=== PATIENT | male | born 1970 | race Caucasian/White ===

== ENCOUNTER 2016-08-02 10:24 | Observation (INO) | payer BC ==
[2016-08-02] MEDS ORDERED: Aspirin Low Dose CHEW TAB* 81 MG PO ONE (10:27)
[2016-08-02 12:17] LABS: Hematocrit 43 % (42-52); Hemoglobin 14.6 g/dl (14.0-18.0); Mean Corpuscular HGB Conc 34 g/dl (31-36); Mean Corpuscular Hemoglobin 30 pg (27-31); Mean Corpuscular Volume 89 fL (80-94); Mean Platelet Volume 8 um3 (7.4-10.4); Red Blood Count 4.83 10^6/ul (4.0-5.4); Red Cell Distribution Width 13 % (10.5-15); White Blood Count 9.7 10^3/ul (3.5-10.8)
[2016-08-02] MEDS ORDERED: Nitroglycerin 2% OINT* 1 GM PAK TOPICAL ONE (12:19)
[2016-08-02] MEDS ORDERED: Nitroglycerin 2% OINT* 1 GM PAK ONE (12:22)
[2016-08-02 12:34] LABS: Albumin 4.1 g/dL (3.2-5.2); BUN/Creatinine Ratio 15.9 (8-20); Calcium 9.4 mg/dL (8.6-10.3); EGFR African American 119.9 (>60); EGFR Non-African American 93.2 (>60); Globulin 2.9 g/dL (2-4); Potassium 3.8 mmol/L (3.5-5.0); Total Bilirubin 0.9 mg/dL (0.2-1.0)
[2016-08-02 12:42] LABS: Troponin I 0.04 ng/mL (<0.04)
[2016-08-02] MEDS ORDERED: Acetaminophen TAB* 325 MG PO PRN (13:30)
[2016-08-02] MEDS ORDERED: Albuterol 2.5 MG/3 ML NEB.SOL* (0.083%) INH PRN (13:30)
[2016-08-02] MEDS ORDERED: Heparin DRIP 25,000 UNITS(*) 25,000 UNITS/500 ML BAG IVPB SCH (13:30)
[2016-08-02] MEDS ORDERED: Ondansetron INJ* 2 MG/ML VIAL IV PRN (13:30)
--- NOTE | 2016-08-02 14:23 | RAD ---
INDICATION: Chest pain. COMPARISON: There are no prior studies available for comparison. TECHNIQUE: A portable view of the chest was obtained. FINDINGS: Cardiac and mediastinal contours appear to be within normal limits. The lungs are clear. No pleural effusion is seen. IMPRESSION: NO EVIDENCE FOR ACUTE DISEASE.
[2016-08-02] MEDS: Heparin VIAL(*) 5000 UNITS/ML VIAL (FIVE THOUSAND) IV SCH (15:15)
[2016-08-02] MEDS: Metoprolol Tartrate TAB* 25 MG PO SCH ×2 (15:16→21:08)
[2016-08-02] MEDS: Atorvastatin* 80 MG TAB PO SCH ×2 (15:16→15:55)
[2016-08-02] MEDS: Omeprazole CAP* 20 MG PO SCH (15:16)
[2016-08-02] MEDS: Nitroglycerin 2% OINT* 1 GM PAK TOPICAL SCH ×2 (15:17→21:15)
[2016-08-02] MEDS ORDERED: Perflutren Lipid Microsphere* 3 ML VIAL IV ONE (16:00)
--- NOTE | 2016-08-02 16:35 | ECHO ---
Patient: TARA COREAS [facility] Rec#: [id number] : 1970 Date: 08/02/2016 Age: 46y Height: 173 cm / 68.1 in Weight: 100 kg / 220.4 lbs Sex: M BSA: 2.13 Room#: 453 Admit Date#: 08/02/2016 Type: Inpatient Referring: Ankit De La Garza NP Reading: Ranjit Beckwith MD [employer] Machine Operator Helper: Jocy Kasper RDCS,RDMS CC: Bhavin Berman MD Transthoracic Echocardiogram Indication: CP BP: 126/89 Rhythm: NSR Indications Chest Pain Findings History: Angina, asthma, GERD Technical Comments: The study quality is fair. Completed at 1630 The study is technically limited due to poor apical windows. Left Ventricle: The left ventricular chamber size is normal. Mild concentric left ventricular hypertrophy is observed. Global left ventricular wall motion and contractility are within normal limits. The estimated ejection fraction is 55-60%. There is no consistent Doppler evidence of clinically significant diastolic dysfunction. Left Atrium: The left atrial chamber size is normal. Right Ventricle: The right ventricular chamber size and systolic function are within normal limits. Right Atrium: The right atrial cavity size is normal. Aortic Valve: The aortic valve is trileaflet. There is no evidence of aortic valve thickening. There is no evidence of aortic regurgitation. There is no evidence of aortic stenosis. Mitral Valve: The mitral valve leaflets appear normal. There is no evidence of mitral regurgitation. There is no evidence of mitral stenosis. Tricuspid Valve: The tricuspid valve leaflets are normal. There is a physiologic tricuspid regurgitation. Unable to estimate the right ventricular systolic pressure. Pulmonic Valve: There is no evidence of pulmonic valve thickening. There is a trace pulmonic regurgitation. Pericardium: There is no significant pericardial effusion. Aorta: The aortic root appears normal. There is no dilatation of the aortic arch. Pulmonary Artery: The main pulmonary artery appears normal. Venous: The inferior vena cava appears normal in size. There is a greater than 50% respiratory change in the inferior vena cava dimension. Contrast: Definity was used to optimize study. A total of 4 ml was used Conclusions Mild concentric left ventricular hypertrophy is observed. Global left ventricular wall motion and contractility are within normal limits. The estimated ejection fraction is 55-60%. The right ventricular chamber size and systolic function are within normal limits. There is no evidence of aortic regurgitation. There is no evidence of aortic stenosis. There is no evidence of mitral regurgitation. There is a physiologic tricuspid regurgitation. Unable to estimate the right ventricular systolic pressure. There is no significant pericardial effusion. Measurements Name Value Normal Range RVIDd (AP) 2D 3 cm (0.9 - 2.6) RVDdMajor (2D) 2.5 cm (2.2 - 4.4) RAd ISD 4CH 4.6 cm (3.4 - 4.9) RA (A4C)W 3.4 cm (2.9 - 4.6) IVSd (2D) 1.1 cm (0.6 - 1) LVPWd (2D) 1.1 cm (0.6 - 1) LVIDd (2D) 4.5 cm (3.6 - 5.4) LVIDs (2D) 3.6 cm - LV FS (2D) 20 % (25 - 45) Aortic Annulus 2.1 cm (1.4 - 2.6) Ao root diameter (2D) 2.8 cm (2.1 - 3.5) Ascending Ao 2.8 cm (2.1 - 3.4) Aortic arch 3.2 cm (1.8 - 3.4) LA dimension (AP) 2D 4 cm (2.3 - 3.8) LAd ISD 4CH 5.2 cm (2.9 - 5.3) LA ISD 4CH W 4.2 cm (2.5 - 4.5) Name Value Normal Range LA ESV SP 4CH (A/L) 60.49 ml - LA ESV SP 2CH (A/L) 77.32 ml - LA ESV BP (A/L) 68.92 ml - LA ESV BP (A/L) index 31 ml/m2 - LA ESV SP 4CH (MOD) 57.13 ml - LA ESV SP 2CH (MOD) 74.28 ml - Name Value Normal Range MV E-wave Vmax 0.7 m/sec - MV deceleration time 199 msec - MV A-wave Vmax 0.6 m/sec - MV E:A ratio 1.2 ratio - LV septal e' Vmax 0.09 m/sec - LV lateral e' Vmax 0.07 m/sec - LV E:e' septal ratio 8 ratio - LV E:e' lateral ratio 10 ratio - Name Value Normal Range AV Vmax 1.4 m/sec - AV VTI 26 cm - AV peak gradient 8 mmHg - AV mean gradient 3.7 mmHg - LVOT Vmax 1.4 m/sec - LVOT VTI 24.3 cm - LVOT peak gradient 8 mmHg - LVOT mean gradient 3.4 mmHg - MIGUEL ANGEL Vmax 1 m/sec - Name Value Normal Range RAP 8 mmHg - IVC diameter 2.1 cm - Name Value Normal Range PV Vmax 0.9 m/sec - PV peak gradient 3.2 mmHg -
[2016-08-02] MEDS: Morphine INJ* 2 MG/ML 1 ML SYRINGE IV PRN (19:53)
[2016-08-02] MEDS: Mometasone/Formoter 200/5 MDI INH SCH (20:11)
--- NOTE | 2016-08-02 20:11 | HP ---
HISTORY AND PHYSICAL: DATE OF ADMISSION: 08/02/16 PRIMARY CARE PROVIDER: Dr. Berman. ATTENDING PHYSICIAN WHILE IN THE HOSPITAL: Dr. Shirley Anderson * (report dictated by Ankit De La Garza NP) CONSULTING DIRECTOR OF MEDICAL STAFF SERVICES: Dr. Beckwith. CHIEF COMPLAINT: Chest pain. HISTORY OF PRESENT ILLNESS: Mr. Manley is a 46-year-old male patient, who carries a history of GERD and asthma. He comes in today stating that about 10 days ago, he came back from [place] on the and he noticed the night of getting back, he had an episode of chest discomfort in the center of his chest, described as pressure in the center. He went and sought care with initially Ren[facility] and then Dr. Berman. Ultimately, throughout last week, he had a CTA of the chest, which was negative and he also had ultrasound of lower extremities, which were negative. He says that though throughout the week , he has had progressive worsening chest discomfort mostly at night. He states that the pain is described as a pressure and he has noticed that initially when the pain came last week, it only lasted about 15 to 20 minutes; however, the duration, frequency, and intensity of the pain has been increasing throughout the week. He has noticed that almost on a nightly basis now he is having chest discomfort. He was set up with Dr. Berman to undergo stress testing and an echo. Unfortunately, last night, around 3 o'clock in the morning, he woke up, started having chest discomfort, he was sweaty, he felt short of breath. The symptoms were much more intense and different. The associated symptoms were now new. Interestingly, though he does state that if he changes position, the pain did go away particularly after taking his first nitro. He says that the pain lasted probably about an hour to two hours and went away by the time he went to the ER initially in [place] on this morning, he received another nitro over at the [facility] and the pain went completely away. He was evaluated there because he was having recurrence of chest pain and his story was concerning. He was sent to [facility]. Initial troponin was 0.02 and he had an EKG here, which did show right bundle branch block with no ST elevations or T-wave inversion. He says he has not been sick recently. Denies having any leg swelling or calf tenderness or pain. No abdominal pain. No vomiting or diarrhea. No upper respiratory type symptoms. He was evaluated in the ER here, his initial troponin was now 0.04 with a troponin over at [place] was 0.02. Because of his story, the increasing troponin, the hospitalist service was asked to evaluate for admission. PAST MEDICAL HISTORY: Significant for: 1. GERD. 2. Asthma. PAST SURGICAL HISTORY: He has had a tonsillectomy. MEDICATIONS: His home medications include: 1. Symbicort 2 puffs inhaled b.i.d. 2. ProAir 1 inhalation every 4 hours as needed for shortness of breath. 3. Nitro 0.4 mg sublingual q.5 minutes p.r.n. chest pain x3. 4. Omeprazole 20 mg p.o. b.i.d. ALLERGIES TO MEDICATIONS: Include no known drug allergies. FAMILY HISTORY: His mother had a history of coronary artery disease. Father had a history of atrial fibrillation. SOCIAL HISTORY: He does not smoke, he does not drink. Surrogate decision maker is his . REVIEW OF SYSTEMS: There is no documented fever. Denied having any significant weight change. There was no double vision. He denies having any ear discharge. There was no rhinorrhea. No sore throat. No thyroid enlargement. There was chest pain from my HPI. There is no abdominal pain. There was nausea with the chest pain today. No orthopnea, no nocturnal dyspnea. He denied having any lightheadedness. No pruritus and no skin ulceration. No loss of consciousness. Review of 14 systems completed, all others negative. PHYSICAL EXAMINATION GENERAL: At this time, Mr. Manley is a 46-year-old male patient. He is sitting in the ER stretcher. He does not appear to be in acute distress. VITAL SIGNS: Reveals blood pressure 126/87, pulse 80, respirations 18, O2 sat 96%, temperature of 97.7. HEENT: Head is atraumatic, normocephalic. Eyes: EOMs are intact. Sclerae are anicteric, not pale. Throat: Oral mucosa appears moist. No oropharyngeal erythema. NECK: Supple. LUNGS: Clear to auscultation bilaterally. No wheezes, rales, or rhonchi. HEART: Sounds S1 and S2, regular rate and rhythm. No murmurs, gallops, or rubs. ABDOMEN: Soft, flat, nontender. Bowel sounds present. EXTREMITIES: Pulses are 2+ throughout. Able to move all 4 extremities with 5/ 5 strength. NEUROLOGIC: He is awake, alert, and oriented x3. No gross focal deficits. SKIN: Grossly intact. DIAGNOSTIC STUDIES/LAB DATA: Today reveal WBC 9.7, RBC of 4.83, hemoglobin 14.6, hematocrit 43, platelet count 273,000. He did have a CTA of the chest over at [place] last week, which was negative for PE or aneurysm. That report was in his chart. Sodium today was 137, potassium 3.8, chloride of 102, bicarb 28, BUN 14, creatinine 0.88, glucose was 94, lactate 0.9, calcium 9.4. Total bili 0.9, AST 12, ALT 19, alk phos . Troponin 0.04. Albumin was 4.1. He did have an EKG obtained today, which showed a sinus rhythm with rate of 72. No ST elevations or T-wave inversions. He did have rate of 72. Chest x-ray pending. Again, he had CTA over at [place] which was negative for PE last week. Old medical records reviewed. ASSESSMENT AND PLAN: Mr. Manley is a 46-year-old male patient coming into the ER today with complaints of chest discomfort that has been getting progressively worse over the last essentially 10 days. In addition to this, today it was longer, associated with nausea and shortness of breath; however, it was better with sitting upright after taking the first nitro. The hospitalist service was asked to evaluate because of the elevation of troponin of 0.04. He will be admitted under observation status for: 1. Chest discomfort. His pain is concerning for possible acute coronary syndrome. The plan at this point will be to go ahead and put him on a heparin drip, give him beta elif. He is on nitrates already. He is chest pain free. I will place him on a statin, start an aspirin, and treat this like a coronary syndrome. I did order an echo. Plan is we are repeating a troponin now, if it is trending up, we will possibly proceed to heart cath; however, that decision will ultimately be determined by Cardiology. I did touch base with Dr. Beckwith, who will evaluate the patient and we will place him on telemetry and we will continue to follow. 2. Gastroesophageal reflux disease. Continue PPI therapy. 3. Asthma. Continue Symbicort and the p.r.n. albuterol. 4. DVT prophylaxis. He will be placed on a heparin drip. 5. Code status. He is full code. 6. Fluids, electrolytes, and nutrition. He will be on a clear liquid diet and then I will make him n.p.o. after midnight. TIME SPENT: On the admission was 60 minutes; greater than half the time was spent [id number] with the patient obtaining my history and physical, other half the time was spent going over the plan of care with the patient and implementing the plan of care. I did discuss the plan of care with my attending, Dr. Anderson; she is in agreement. ANKIT DE LA GARZA NP CC: Dr. Berman; Dr. Beckwith* [id number]/CPS #: [id number] [facility] CENTERJuvenal
[2016-08-03] MEDS: Morphine INJ* 2 MG/ML 1 ML SYRINGE IV PRN ×2 (00:47→05:07)
[2016-08-03 03:06] LABS: Hematocrit 43 % (42-52); Hemoglobin 14.3 g/dl (14.0-18.0); Mean Corpuscular HGB Conc 33 g/dl (31-36); Mean Corpuscular Hemoglobin 30 pg (27-31); Mean Corpuscular Volume 90 fL (80-94); Mean Platelet Volume 8 um3 (7.4-10.4); Red Cell Distribution Width 13 % (10.5-15); White Blood Count 13.2 10^3/ul (3.5-10.8)
[2016-08-03 03:21] LABS: BUN/Creatinine Ratio 14.8 (8-20); Calcium 9.3 mg/dL (8.6-10.3); EGFR African American 131.9 (>60); EGFR Non-African American 102.6 (>60); HDL Cholesterol 58.9 mg/dL; Potassium 3.6 mmol/L (3.5-5.0)
[2016-08-03] MEDS: Heparin VIAL(*) 5000 UNITS/ML VIAL (FIVE THOUSAND) IV SCH (03:44)
[2016-08-03] MEDS: Nitroglycerin 2% OINT* 1 GM PAK TOPICAL SCH (05:13)
[2016-08-03] MEDS: Metoprolol Tartrate TAB* 25 MG PO SCH (08:10)
[2016-08-03] MEDS: Omeprazole CAP* 20 MG PO SCH (08:36)
[2016-08-03] MEDS ORDERED: Aspirin Low Dose CHEW TAB* 81 MG PO SCH (09:00)
[2016-08-03] MEDS: Mometasone/Formoter 200/5 MDI INH SCH (09:11)
[2016-08-03] MEDS ORDERED: Perflutren Lipid Microsphere* 3 ML VIAL ONE (09:19)
[2016-08-03] MEDS ORDERED: Perflutren Prot Type A Micr (NF) 3 ML SDV IV ONE (09:31)
[2016-08-03 11:05] LABS: C Reactive Protein 47.8 mg/L (< 5.00)
[2016-08-03 11:39] LABS: Erythrocyte Sed Rate 10 mm/Hr (0-14)
--- NOTE | 2016-08-03 13:05 | PN ---
Subjective Date of Service: 08/03/16 Interval History: Patient seen and examined at bedside. Pt states that he continues to have chest discomfort that is worse with laying down and improves when sitting up. Denies fever, chills, shortness of breath, N/V/D. Tele: Sinus rhythm, rate 60-70's. Family History: Unchanged from Admission Social History: Unchanged from Admission Past Medical History: Unchanged from Admission Objective Active Medications: Acetaminophen (Tylenol Tab*) 650 mg PO Q4H PRN Reason: FEVER/PAIN Albuterol (Ventolin 2.5 Mg/3 Ml Neb.Mirian*) 2.5 mg INH Q2H PRN Reason: SOB/ WHEEZING Aspirin (Aspirin Low Dose Tab*) 81 mg PO DAILY [facility] Atorvastatin Calcium (Lipitor*) 80 mg PO 1700 [facility] Metoprolol Tartrate (Lopressor Tab*) 25 mg PO BID [facility] Mometasone Furoate/Formoterol Fumar (Dulera 200/5 Mdi*) 2 puff INH BID ALMA Reason: Protocol Morphine Sulfate (Morphine Inj (Syringe)*) 2 mg IV Q4H PRN Reason: PAIN - MILD Omeprazole (Prilosec Cap*) 20 mg PO BID@0730,1630 [facility] Ondansetron HCl (Zofran Inj*) 4 mg IV Q6H PRN Reason: NAUSEA Vital Signs 08/02/16 08/02/16 08/02/16 13:22 13:30 14:00 Temperature 98.0 F Pulse Rate 74 86 79 Respiratory 18 25 18 Rate Blood Pressure 152/96 140/92 134/85 (mmHg) O2 Sat by Pulse 97 97 96 Oximetry 08/02/16 08/02/16 08/02/16 14:10 14:13 16:30 Temperature 98.1 F 98.0 F Pulse Rate 72 71 Respiratory 20 22 17 Rate Blood Pressure 128/86 124/76 (mmHg) O2 Sat by Pulse 96 Oximetry 08/02/16 08/02/16 08/02/16 19:28 19:53 20:00 Temperature 98.0 F Pulse Rate 67 Respiratory 24 17 17 Rate Blood Pressure 136/84 (mmHg) O2 Sat by Pulse 99 Oximetry 08/02/16 08/02/16 08/02/16 20:12 20:53 23:56 Temperature 98.1 F Pulse Rate 66 71 Respiratory 13 20 16 Rate Blood Pressure 129/76 (mmHg) O2 Sat by Pulse 98 95 Oximetry 08/03/16 08/03/16 08/03/16 00:47 01:47 03:06 Temperature 98.8 F Pulse Rate 74 Respiratory 24 16 16 Rate Blood Pressure 115/78 (mmHg) O2 Sat by Pulse 95 Oximetry 08/03/16 08/03/16 08/03/16 05:07 06:07 07:11 Temperature 98.3 F Pulse Rate 76 Respiratory 20 16 18 Rate Blood Pressure 127/81 (mmHg) O2 Sat by Pulse 95 Oximetry 08/03/16 11:14 Temperature 98.6 F Pulse Rate 87 Respiratory 18 Rate Blood Pressure 137/79 (mmHg) O2 Sat by Pulse 94 Oximetry Oxygen Devices in Use Now: None Appearance: NAD, sitting up in a chair Eyes: No Scleral Icterus, PERRLA Ears/Nose/Mouth/Throat: Mucous Membranes Moist Respiratory: Symmetrical Chest Expansion and Respiratory Effort, Clear to Auscultation Cardiovascular: NL Sounds; No Murmurs; No JVD, RRR Abdominal: NL Sounds; No Tenderness; No Distention Extremities: No Edema Skin: No Rash or Ulcers Neurological: Alert and Oriented x 3, NL Muscle Strength and Tone Lines/Tubes/Other Access: Clean, Dry and Intact Peripheral IV - site benign Nutrition: Taking PO's Result Diagrams: 08/03/16 02:59 08/03/16 02:59 Assess/Plan/Problems-Billing Assessment: Mr. Manley is a 46 yo male with PMH significant for GERD and asthma who presented to the hospital with complaints of chest discomfort. - Patient Problems (1) Chest pain Code(s): R07.9 - CHEST PAIN, UNSPECIFIED SNOMED Code(s): 12215805 Comment: - No signs of ischemia on stress echo - Troponins 0.04, 0.00, 0.01, 0.00 - Echo with no significant findings - Suspect this is Pericarditis - Will give Motrin and colchicine, will see if this improves the pain (2) GERD (gastroesophageal reflux disease) Code(s): K21.9 - GASTRO-ESOPHAGEAL REFLUX DISEASE WITHOUT ESOPHAGITIS SNOMED Code(s): 428674381 Comment: - Continue PPI (3) Asthma Code(s): J45.909 - UNSPECIFIED ASTHMA, UNCOMPLICATED SNOMED Code(s): 315971224 Comment: - Continue Symbicort and PRN albuterol (4) DVT prophylaxis Code(s): VSF4861 - SNOMED Code(s): 109078293 (5) Full code status Code(s): Z78.9 - OTHER SPECIFIED HEALTH STATUS SNOMED Code(s): 213303942 Status and Disposition: OBV. Stable for discharge to home later this afternoon if pain improved.
[2016-08-03] MEDS ORDERED: Colchicine* 0.6 MG TAB PO SCH (14:00)
[2016-08-03] MEDS ORDERED: Ibuprofen TAB* 600 MG PO SCH (14:00)
[2016-08-03 15:57] VITALS: BP 129/69
--- NOTE | 2016-08-04 13:32 | DS ---
CC: Dr. Bhavin Berman DISCHARGE SUMMARY: DATE OF ADMISSION: 08/02/16 DATE OF DISCHARGE: 08/03/16 ATTENDING PHYSICIAN: Dr. Tiago Santos (dictated by Jose Carnes NP) PRIMARY DIAGNOSES: 1. Atypical chest pain. 2. Suspected pericarditis. SECONDARY DIAGNOSES: 1. Gastroesophageal reflux disease. 2. Asthma. STUDIES WHILE IN THE HOSPITAL: 1. Transthoracic echocardiogram on 08/02/16. Administrative Staff Supervisor impression: Mild concentric left ventri cular hypertrophy was observed. Global left ventricular wall motion and contractility are within no rmal limits. The estimated ejection fraction is 55% to 60%. The left ventricular chamber size and systolic function are within normal limits. There is no evidence of aortic regurgitation, no eviden ce of aortic stenosis. No evidence of mitral regurgitation. There is a physiological tricuspid reg urgitation. Unable to estimate the right ventricular systolic pressure. There is no significant pe ricardial effusion. 2. Chest x-ray on 08/02/16. Radiologist impression: No evidence for acute disease. 3. Cardiac stress echo from 08/03/16. Administrative Staff Supervisor observation: Far to good exercise capacity. C hest pain, consistent at the start of the test, increased with testing. Progressive dyspnea and fat igue. Normal resting BP, appropriate BP response to exercise. Resting ECG shows normal sinus rhyth m, increased right bundle branch block, normal ST segments. Echo done with Definity echo contrast, normal wall motion and contractility in all regions. Post exercise, all regions improved symmetrica lly. Administrative Staff Supervisor conclusion: No inducible ischemia by ECG and echo criteria. Chest pain througho ut. DISCHARGE MEDICATIONS: New medications: 1. Colchicine 0.6 mg oral daily. 2. Ibuprofen 600 mg oral three times daily. Continued home medications: 1. Symbicort 160/4.5 two puffs inhalation twice daily. 2. ProAir RespiClick 180 mcg inhalation every 4 hours as needed for shortness of breath or wheeze. 3. Nitroglycerin 0.4 mg sublingual as needed for chest discomfort. 4. Omeprazole 20 mg oral twice daily. HISTORY OF PRESENT ILLNESS/HOSPITAL COURSE: Mr. Manley is a 46-year-old male with past medical histo ry significant for GERD and asthma who reports developing an episode of chest discomfort approximate ly 10 days ago after returning from a trip. The patient described the pressure in the center of his chest. He went to [facility] and Dr. Berman. Throughout the week the patient had a CTA o f his chest, which was negative and then ultrasound of his lower extremities that were negative. Th e patient's pain progressed through the week with most of the discomfort occurring at night when he was lying down. The patient reported the initial pain lasted for 15 to 20 minutes but the duration, frequency, and intensity continued to increase throughout the week. The patient noticed on a night ly basis, he was having discomfort. He was setup with Dr. Berman to undergo a stress test and an echocardiogram. The patient's discomfort became so severe and he developed diaphoresis, shortness of breath, and felt that his symptoms are more intense and different and he now had associated sympt oms. The patient did notice that when he changed positions, the pain did go away particularly after taking nitro. The patient decided to present to the [facility] Emergency Room for further e valuation. Due to the feeling that the patient had a concerning story and his initial troponin was 0.02 and he had an EKG showing a right bundle branch block with no ST elevation or T-wave inversions . The patient was sent to [facility] for further evaluation. While in the emergency room, the patient's initial troponin was 0.04. Due to the patient's increase in troponin and accompanying history of chest discomfort, the hospitalist was asked to the evaluate the patient. While in the hospital, the patient was initially started on heparin drip, given a beta-elif and a spirin. He was chest pain free. He underwent an echocardiogram showing no significant findings. H e underwent a stress echo today with no signs of ischemia. The patient was not found to have a sign ificant pericardial effusion. It was felt that this could represent pericarditis. The patient descr ibes his pain as worse when lying down, improved and resolved with sitting up. The patient was give n Motrin and colchicine. The patient had resolution of his pain with colchicine. It is felt that t he patient could be discharged to home today and most likely his symptoms were caused by pericarditi s. Mr. Manley is stable for discharge to home today. Vital signs are as follows: Temperature 97.8, hear t rate 83, respiratory rate 16, O2 saturations 94% on room air, blood pressure 129/69. DISCHARGE PLAN: Mr. Manley will be discharged to home. Activity, as tolerated. Heart healthy diet. As far as the patient's pericarditis, he has been started on colchicine daily. He has been asked t o take Motrin 600 mg three times daily for a week. The patient should be seen in followup by his [facility] care provider Dr. Bhavin Berman. The patient's primary care office is closed at this time and he has been asked to call and make a followup appointment to be seen in the next week. The shannan ent has been asked to return to the emergency room for changes in his chest discomfort, shortness of breath, worrisome symptoms such as pain radiating to his jaw and arms. As far as the patient's lg e medications, he has been continued on his Symbicort, ProAir, and omeprazole. This is a summarized report of a complex medical history and hospital stay. For further details, pl ease see the entire medical record. TIME SPENT: Time for this discharge was 50 minutes, 25 minutes was spent face-to- face with the pat ient and discussing discharge plans and instructions. CONDITION ON DISCHARGE: [place] [id number]/[facility] #: [id number]
== END 2016-08-03 17:50 | disposition home or self-care (01) ==
LOC: ED 10:24 → MEDTELE 12:32
PROVIDERS: ADMIT Hospitalist; ATTEND Internal Medicine
DX: R07.9 Chest pain, unspecified (principal); I31.9 Disease of pericardium, unspecified; K21.9 Gastro-esophageal reflux disease without esophagitis; J45.909 Unspecified asthma, uncomplicated; I45.10 Unspecified right bundle-branch block
CPT/HCPCS: 36415; 71010; 80048; 80053; 80061; 83036; 83605; 84484; 84520; 85025; 85610; 85652; 85730; 86140; 93005; 93306; 93351; 94640; 96374; 99284; A9270-GY; C8929; C8930; G0378; J1644; J2270; Q9956